=== PATIENT | female | born 1975 | race Caucasian/White ===

== ENCOUNTER 2017-06-06 11:21 | Emergency (ER) | payer BC ==
[2017-06-06] MEDS ORDERED: diphenhydrAMINE HCL 50 MG/ML VIAL IM ONE (11:44)
[2017-06-06] MEDS ORDERED: METHYLPREDNISOLONE ACETATE 80 MG/ML VIAL IM ONE (11:44)
--- NOTE | 2017-06-06 11:56 | ERNOTE ---
Integumentary HPI - Narrative Date of Service: 06/06/17 - General Presenting Symptoms: rash Time Seen by Provider: 06/06/17 11:35 Source: patient Exam Limitations: no limitations - Immun/Allergies/Home Medications Immunizations: IMMUNIZATION HX Immunizations Up to Date Yes Allergies/Adverse Reactions: Allergies Allergy/AdvReac Type Severity Reaction Status Date / Time venom-honey bee Allergy Verified 06/06/17 11:29 [bee venom (honey bee)] Home Medications: HOME MEDICATIONS predniSONE [Prednisone] 3 tab PO DAILY #9 tab 06/06/17 [Last Taken Unknown] - History of Present Illness Narrative: Pt. comes in with c/o rash that developed yesterday on her thighs, arms, and neck since last night. Pt. states that it itches and looks like the Poison Fatmata she got last year after working in her yard, which is what she was doing yesterday before this developed. Pt. states that it is itchy and she applied calamine lotion without relief. Review of Systems - Review of Systems Constitutional: Present: no symptoms reported. Absent: recent illness, fever, chills, weakness, fatigue, malaise, weight loss EYE: Present: no symptoms reported ENT: Present: no symptoms reported Respiratory: Present: no symptoms reported. Absent: shortness of breath, cough , wheezing Cardiology: Present: no symptoms reported. Absent: chest pain, palpitations, edema Gastrointestinal/Abdominal: Present: no symptoms reported. Absent: nausea, vomiting, diarrhea Genitourinary: Present: no symptoms reported. Absent: frequency, decreased urinary output Musculoskeletal: Present: no symptoms reported. Absent: back pain, joint pain Skin: Present: rash Neurological: Present: no symptoms reported. Absent: headache, dizziness/light- headedness, numbness, tingling Endocrine: Present: no symptoms reported Hematologic/Lymphatic: Present: no symptoms reported All Other Systems: All systems neg except as marked - Patient's Past Medical History Patient History - Medical: No pertinent hx Patient History - Cardiac/Respiratory: No pertinent hx Patient History - Cancer: No Hx of Cancer Patient History - Surgical Procedures: No surgical history Patient History - Other: None - Social History Living Situations: home Abuse History: No History of abuse Psych History: No pertinent hx Alcohol Use: none Drug Use: none - Immunizations Immunizations Up to Date: Yes Physical Exam - Physical Exam General Appearance: Present: wd/wn, alert, no apparent distress Head Exam: Present: normal inspection, no evidence of injury Eye Exam: Normal inspection: bilateral Ears, Nose, Throat: Present: normal ENT inspection, normal pharynx Neck: Present: nontender, supple, full range of motion. 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 Vital Signs: Vital Signs 06/06/17 11:26 Temperature 36.7 C Pulse Rate 78 Respiratory 12 Rate Blood Pressure 138/72 O2 Sat by Pulse 100 Oximetry - Progress/Reassessment Chief Complaint: Rash Departure Clinical Impression: Poison fatmata dermatitis - Departure Disposition: Home self-care Condition: Good Instructions: Poison Fatmata Dermatitis, [id number] Additional Instructions: Please take Benadryl 25 mg every six hours starting at 6pm tonight. Referrals: Myranda Granados MD [Primary Care Provider] - Prescriptions: predniSONE [Prednisone] 3 tab PO DAILY #9 tab
[2017-06-06] MEDS ORDERED: diphenhydrAMINE HCL 50 MG/ML VIAL ONE (12:08)
[2017-06-06] MEDS ORDERED: METHYLPREDNISOLONE ACETATE 80 MG/ML VIAL ONE (12:08)
[2017-06-06 12:14] VITALS: BP 120/86
== END 2017-06-06 12:15 | disposition home or self-care (01) ==
LOC: ER 11:21
DX: L23.7 Allergic contact dermatitis due to plants, except food (principal)